=== PATIENT | female | born 1945 | race Caucasian/White ===

== ENCOUNTER 2017-08-04 17:24 | Inpatient (IN) | payer MEDICARE ==
[~2017-08-04] VITALS: Ht 149.9 cm; Wt 83.9 kg
--- NOTE | ~2017-08-04 | EC ---
PATIENT:CORNELIA GANDHI DATE OF SERVICE: 08/04/17 SEX: F MEDICAL RECORD: [id number] DATE OF : [birth year] LOCATION:D. D.211 AGE OF PATIENT: 71 ADMISSION DATE: 08/04/17 REFERRING PHYSICIAN: INTERPRETING PHYSICIAN: DUGLAS COKER MD ECHOCARDIOGRAM REPORT ECHO CHARGES 4 ECHO COMPLETE Date: 08/05 CLINICAL DIAGNOSIS: ACUTE OR ECHOCARDIOGRAPHIC MEASUREMENTS (adult normal given) AC root (d.<3.7cm) 3.7 cm LV Septum d (<1.2 cm> 1.4 cm Valve Excursion 1.9 cm LV Septum (systole) 1.7 cm Left Atria (s.<4.0cm> 4.9 cm LVPW d(<1.2cm) 1.5 cm RV (d.<2.3cm) 3.6 cm LVPW (sytole) 2.1 cm LV diastole(<5.6CM) 4.2 cm MV E-F(>70mm/sec) cm LV systole 2.5 cm LVOT Diameter 1.6 cm MV exc.(>10mm) 1.0 cm Est.ejection fraction (50-75%) % DOPPLER: LVIT cm/sec A 82.0 cm/sec E 94.0 cm/sec LA cm/sec RVSP 41 mmHg LVOT 88 cm/sec AOP1/2T m/s Asc. 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 Coker TAPE# PACS Pericardial Effusion N DATE OF SERVICE: PROCEDURE: Transthoracic echocardiogram. FINDINGS: 1. Left ventricle has moderate concentric left ventricular hypertrophy. Inflow characteristic is consistent with grade II diastolic dysfunction. 2. The overall ejection fraction is 60% to 70%. 3. The left atrium is moderately dilated. 4. The aortic valve is overall normal. ECHOCARDIOGRAM REPORT [id number] CORNELIA GANDHI 5. The mitral valve has mild mitral regurgitation. 6. Tricuspid valve has mild tricuspid regurgitation. 7. The right ventricle is mildly dilated. 8. The right atrium is mildly dilated. CONCLUSION: The patient has evidence of hypertensive heart disease. There is no obvious regional wall motion abnormalities with this evaluation. TRANSINT:[id number] Voice Confirmation ID: [id number] DOCUMENT ID: [id number] DUGLAS COKER MD at 0927 CC: [id number] DICTATION DATE: 08/06/17 1033 PLEAT TAPER: 08/06/17 1059 DIS IN 08/05/17 [place] [id number]
--- NOTE | ~2017-08-04 | HEMODYNAMI ---
PATIENT:CORNELIA GANDHI MEDICAL RECORD: [id number] : [birth year] LOCATION:[facility] D.2115 ADMISSION DATE: 08/04/17 Generatedon:08/05/20179:49 Patient name: CORNELIA GANDHI Patient #: [id number] SSN: DO B: 1945 Date of study: 08/05/2017 Page: Of Hemodynamic Procedure Report Patient Data Patient Demographics Procedure consent was obtained First Name: CORNELIA Gender: Female Last Name: HIRAM : 1945 Patient #: [id number] Age: 71 year(s) Race: Unknown Additional ID: [id number] Contact details [address]: [address] [place] [address] State: [place] City: [place] Zip code: [address] Past Medical History Allergies Allergen Reaction Date Comments Reported Other allergy 08/05/2017 PCN, IV DYE Admission Admission Data Admission Date: 08/04/2017 Admission Time: 22:08 Room #: D2115 Lab Results Lab Result Date: 08/05/2017 Lab Result Time: 0:00 Biochemistry Name Units Result Min Max BUN mg/dl 17 --(---*)-- 7 18 Creatinine mg/dl 0.7 --(*---)-- 0.6 1.3 CBC Name Units Result Min Max Hemoglobin g/dl 12.2 *-(----)-- 13.5 17.5 Procedure Procedure Types Cath Procedure Diagnostic Procedure [facility] w/Coronaries PCI Procedure Coronary Stent Coronary Stent Initial Procedure Description Procedure Date Procedure Date: 08/05/2017 Procedure Start Time: 9:14 Procedure End Time: 9:46 Procedure Staff Name Function Km Gnuter MD Performing Physician Jose Gross RT Monitor Alyx Mc RT Scrub Juan De Leon RN Nurse Procedure Data Cath Procedure Fluoroscopy Diagnostic fluoroscopy Total fluoroscopy Time: time: 10.8 min 10.8 min Diagnostic fluoroscopy Total fluoroscopy dose: dose: 1564 mGy 1564 mGy Contrast Material Contrast Material Type Amount (ml) Isovue 300 93 Entry Location Entry Primary Successful Side Size Upsize Upsize Entry Closure Hernandez ccessful Closure Location (Fr) 1 (Fr) 2 (Fr) Remarks Device Remarks Radial Right 6 Fr Mechanical artery Short Compression Estimated blood loss: 10 ml Diagnostic catheters Device Type Used For End Catheter Placement DIAGNOSTIC [place] 110cm 5 Procedure Fr catheter ([id number]) Procedure Complications No complications Procedure Medications Medication Administration Route Dosage Oxygen etCO2 Nasal cannula 2 l/min Heparin Flush Bag added to field 2 bags (1000units/500ml NS) 0.9% NaCl I.V. 100 ml/hr Radial Cocktail added to field 1 syringe (Verapomil 2mg/Nitro 400mcg/Heparin 1500units) Fentanyl I.V. 50 mcg Versed I.V. 1 mg Radial Cocktail I.A. 1 syringe (Verapomil 2mg/Nitro 400mcg/Heparin 1500units) Fentanyl I.V. 50 mcg Versed I.V. 1 mg Lopressor I.V. 5 mg Angiomax (bolus) I.V. 12.4 ml Angiomax Drip I.V. drip 28.9 ml/hr (250mg/50ml NS) (Renal) Angiomax Drip I.V. drip 28.9 ml/hr (250mg/50ml NS) (Renal) Hemodynamics Rest HGB: 12.2 (g/dl) Heart Rate: 102 (bpm) Pressure Samples Time Site Value (mmHg) Purpose Heart Use Rate(bpm) 9:17 LV 147/22,32 Snapshot 108 9:17 LV 150/17,29 EDP 109 9:18 LV 130/-6,7 EDP 110 9:19 AO 83/28(54) Snapshot 115 9:20 AO 98/75(74) Snapshot 100 Gradients Valve Time Site Site Mean SEP/DFP Peak To Heart Use 1 2 (mmHg) (sec/min) Peak Rate (mmHg) (bpm) Aortic 9:17 LV AO 108 Aortic 9:19 LV AO 109 Snapshots Pre Cath Intra NCS Post Cath Vital Signs Time Heart Resp SPO2 etCO2 NIBP (mmHg) Rhythm Pain Sedation Rate (ipm) (%) (mmHg) Status Level (bpm) 9:06:26 106 17 90 0 155/97(133) NSR 0 (11) 10(A) , No pain 9:11:17 99 17 95 41.1 133/83(116) NSR 0 (11) 10(A) , No pain 9:16:02 101 16 94 42.6 129/87(118) NSR 0 (11) 9(A) , No pain 9:20:45 95 16 97 44.1 121/75(107) NSR 0 (11) 9(A) , No pain 9:25:29 87 16 92 45.5 126/65(88) NSR 0 (11) 9(A) , No pain 9:30:16 86 17 95 43.3 117/55(87) NSR 0 (11) 9(A) , No pain 9:34:59 85 16 95 43.3 132/77(104) NSR 0 (11) 9(A) , No pain 9:39:44 89 17 93 43.3 138/87(112) NSR 0 (11) 9(A) , No pain 9:44:14 90 17 97 43.3 155/95(138) NSR 0 (11) 9(A) , No pain Medications Time Medication Route Dose Verified Delivered Reason Note s Effectiveness by by 9:05:43 Oxygen etCO2 2 l/min Km Juan Per physician Nasal Lyric De Leon RN cannula 9:05:52 Heparin Flush added 2 bags Km Juan used for Bag to Lyric De Leon RN procedure (1000units/500ml field KEENE NS) 9:06:01 0.9% NaCl I.V. 100 Km Juan Per physician ml/hr Lyric De Leon RN, MD 9:06:09 Radial Cocktail added 1 Km Juan used for (Verapomil to syringe Lyric De Leon RN procedure 2mg/Nitro field KEENE 400mcg/Heparin 1500units) 9:12:12 Fentanyl I.V. 50 mcg Km Juan for sedation Lyric De Leon RN, MD 9:12:20 Versed I.V. 1 mg Km Juan for sedation Lyric De Leon RN, MD 9:16:43 Radial Cocktail I.A. 1 Km Km for (Verapomil syringe Lyric Gunter MD vasodilation 2mg/Star KEENE 400mcg/Heparin 1500units) 9:17:06 Fentanyl I.V. 50 mcg Km Juan for sedation Lyric De Leon RN, MD 9:17:10 Versed I.V. 1 mg Km Martinez for sedation Lyric De Leon RN, MD 9:19:29 Lopressor I.V. 5 mg Km Martinez Per physician Lyric De Leon RN, MD 9:26:32 Angiomax (bolus) I.V. 12.4 ml Km Martinez for Lyric De Leon RN anticoagulation 9:27:05 Angiomax Drip I.V. 28.9 Km Martinez for (250mg/50ml NS) drip ml/hr Lyric De Leon RN anticoagulation (Renal) 9:42:55 Angiomax Drip I.V. 28.9 Km Juan for (250mg/50ml NS) drip ml/hr Lyric De Leon RN anticoagulation (Renal) discontinued Procedure Log Time Note 8:30:48 Juan De Leon RN sent for patient. Start room use. 8:43:49 Time tracking: Regular hours (M-F 7:00 - 5:00) 8:43:54 Plan of Care:Hemodynamics will remain stable., Cardiac rhythm will remain stable., Comfort level will be maintained., Respiratory function will remain adequate., Patient/ family verbilizes understanding of procedure., Procedure tolerated without complication., Recovers from procedure without complications.. 8:43:55 Signed procedure consent form obtained from patient. 8:44:06 H&P Date Dictated: 08/04/2017 Within 30 days and on chart.. 8:44:23 Patient allergic to Other allergyPCN, IV DYE 8:45:30 Lab Result : Creatinine 0.7 mg/dl 8:45:30 Lab Result : BUN 17 mg/dl 8:45:30 Lab Result : Hemoglobin 12.2 g/dl 8:52:42 Patient received from Med II to CCL 1 Alert and oriented. Tansferred to table in Supine position. 8:52:46 Warm blankets applied, and mona hugger turned on for patient comfort. 8:52:46 Correct patient and procedure confirmed by team. 8:52:47 ECG and BP/O2 sat monitors applied to patient. 9:05:23 Vital chart was started 9:05:43 Oxygen 2 l/min etCO2 Nasal cannula was administered by Juan De Leon RN; Per physician; 9:05:52 Heparin Flush Bag (1000units/500ml NS) 2 bags added to field was administered by Juan De Leon RN; used for procedure; 9:06:01 0.9% NaCl 100 ml/hr I.V. was administered by Juan De Leon RN; Per physician; 9:06:09 Radial Cocktail (Verapomil 2mg/Nitro 400mcg/Heparin 1500units) 1 syringe added to field was administered by Juan De Leon RN; used for procedure; 9:07:10 Baseline sample Acquired. 9:07:14 Rhythm: sinus tachycardia 9:07:35 Full Disclosure recording started 9:07:39 Pre-procedure instructions explained to patient. 9:07:39 Pre-op teaching completed and patient verbalized understanding. 9:07:41 Family unavailable. 9:07:44 Patient NPO since Midnight. 9:07:51 Is the patient allergic to Iodine/contrast media? Yes. 9:07:53 Was the patient premedicated? Yes 9:08:00 Is patient on blood thinner?Yes 9:08:03 ACC The patient was administered the following blood thiners within the last 24 hours: ACCBrilinta 9:08:08 Patient diabetic? Yes. 9:08:09 If diabetic: On Metformin? Yes 9:08:12 If on Metformin: Last Dose? 08/03/2017 9:08:16 Patient not . Patient is over age 55. 9:08:18 Previous problem with sedation/anesthesia? No ? 9:08:19 Snore? Yes 9:08:20 Sleep apnea? No 9:08:21 Deviated septum? No 9:08:21 Opens mouth fully? Yes 9:08:22 Sticks out tongue? Yes 9:08:30 Airway obstruction? Yes Asthma 9:08:36 Dentures? No ? 9:08:39 Pre procedure: right dorsailis pedis pulse 1+ Palpable, but thready & weak; easily obliterated 9:08:40 Modified Zack's test Ulnar < 7 seconds 9:08:42 Patient pain scale 0/10 ?. 9:08:47 IV patent on arrival in right forearm with 0.9% NaCl at [facility]. 9:08:49 Lab results completed and on chart. 9:08:56 Right Radial & Right Groin area was prepped with chlora-prep and draped in sterile fashion 9:08:58 Alarms reviewed by R. N. 9:08:59 Sharps counted by scrub and verified by R.N. 9:10:57 --------ALL STOP TIME OUT------ 9:10:58 Final Timeout: patient, procedure, and site verified with staff and physician. All members of the team are in agreement. 9:10:59 Right Radial & Right Groin site verified by team. 9:11:02 Physical assessment completed. ASA score P 2 - A patient with mild systemic disease as per Km Gunter MD. 9:11:05 Sedation plan: IV Moderate Sedation Medication:Versed, Fentanyl 9:12:12 Fentanyl 50 mcg I.V. was administered by Juan De Leon RN; for sedation; 9:12:20 Versed 1 mg I.V. was administered by Juan De Leon RN; for sedation; 9:14:40 Procedure started. 9:14:45 Local anesthetic to right radial artery with Lidocaine 2% by Km Gunter MD.INITIAL ACCESS ONLY 9:14:56 Use device set Radial Dx or PCI 9:14:59 Tegaderm 4 x 4 ([id number]) opened to sterile field. 9:15:05 ACIST Syringe (89186) opened to sterile field. 9:15:05 Medline Cath Pack ([id number]) opened to sterile field. 9:15:06 Bag Decanter (2002S) opened to sterile field. 9:15:09 ACIST Hand Control (52265) opened to sterile field. 9:15:09 ACIST Manifold (54133) opened to sterile field. 9:15:10 DIAGNOSTIC WIRE .035 260cm J wire (120959) opened to sterile field. 9:15:11 MBrace Wrist Support ([id number]) opened to sterile field. 9:15:13 SHEATH 6Fr Prelude Radial ([id number]) opened to sterile field. 9:15:20 IV Extension Set opened to sterile field. 9:16:40 A 6 Fr Short sheath was inserted into the Right Radial artery 9:16:43 Radial Cocktail (Verapomil 2mg/Nitro 400mcg/Heparin 1500units) 1 syringe I.A. was administered by Km Gunter MD; for vasodilation; 9:17:06 Fentanyl 50 mcg I.V. was administered by Juan De Leon RN; for sedation; 9:17:10 Versed 1 mg I.V. was administered by Juan De Leon RN; for sedation; 9:17:19 A DIAGNOSTIC [place] 110cm 5 Fr catheter (115474) was advanced over the wire and used for Procedure. 9:18:05 Zero performed for pressure channel P1 9:18:07 Zero performed for pressure channel P1 9:18:30 LV angiography performed. 9:18:32 LV gram done using SYKES 9:18:38 EF : 60 % 9:18:40 LV hemodynamics recorded. 9:18:43 Injector settings: Ml/sec: 12, Volume: 8, 9:19:16 RCA angiography performed. 9:19:29 Lopressor 5 mg I.V. was administered by Juan De Leon RN; Per physician; 9:20:18 LCA angiography performed. 9:20:41 Catheter exchanged over wire. 9:23:59 Use device set NORRED PCI 9:24:08 INFLATOR Merit BasixCompak (FI5233) opened to sterile field. 9:24:10 COPILOT Valve Control (2782335) opened to sterile field. 9:24:12 BMW 190cm Kil[place] 2 J wire ([id number]) opened to sterile field. 9:25:01 GUIDE 6FR EBU 3.5 SH catheter ([id number]) opened to sterile field. 9:25:13 6 Fr EBU 3.5 SH guide catheter was inserted over the wire 9:26:32 Angiomax (bolus) 12.4 ml I.V. was administered by Juan De Leon RN; for anticoagulation; 9:27:05 Angiomax Drip (250mg/50ml NS) (Renal) 28.9 ml/hr I.V. drip was administered by Juan De Leon RN; for anticoagulation; 9:30:51 BMW wire advanced. 9:31:56 Wire advanced across lesion. 9:35:04 Inflate balloon Inflation number: 1 A EUPHORA 2.0 x 20 Balloon ([id number]) was prepped and advanced across the 1st Diag, then inflated to 10 BRAXTON for 0:10 (min:sec). 9:35:19 Multiple inflations made at 10 Atms. 9:36:28 Balloon removed over the wire. 9:38:56 Place stent Inflation Number: 2 A LEROY RX 2.0 x 15 stent ([id number]) was prepped and advanced across the 1st Diag. The stent was deployed at 14 BRAXTON for 0:10 (min:sec). 9:39:22 Stent catheter was removed intact over wire. 9:40:47 TR BAND Large ([id number]) opened to sterile field. 9:40:56 Wire removed. 9:40:57 Guide catheter removed. 9:41:10 Sheath removed intact; hemostasis achieved with Mechanical Compression to the Right Radial artery. 9:41:13 Procedure ended.(Physican Out) 9:42:55 Angiomax Drip (250mg/50ml NS) (Renal) 28.9 ml/hr I.V. drip was administered by Juan De Leon RN; for anticoagulation discontinued; 9:44:48 Fluoroscopy time 10.80 minutes. 9:44:53 Fluoroscopy dose: 1564 mGy 9:44:53 Flurop Dose total: 1564 9:45:15 Contrast amount:Isovue 300 93ml. 9:45:45 Sharps counted by scrub and verified by R.N. 9:45:48 TR band inflated with 10cc of air. 9:45:51 Insertion/operative site no bleeding no hematoma. 9:45:54 Post Procedure Pulses reassessed and unchanged 9:45:57 Post-procedure physical assessment completed. ASA score P 2 - A patient with mild systemic disease as per Km Gunter MD. 9:45:59 Post procedure rhythm: unchanged. 9:46:03 Estimated blood loss: 10 ml 9:46:04 Post procedure instruction explained to patient.Patient verbalizes understanding. 9:46:05 Patient needs reinforcement of post procedure teaching. 9:46:12 Procedure type changed to Cath procedure, Diagnostic procedure, LHC, LHC w/Coronaries, PCI procedure, Coronary Stent, Coronary Stent Initial 9:46:14 Procedure and supply charges have been captured, reviewed, submitted and are correct. 9:46:17 Procedure Complication : No complications 9:46:19 Vital chart was stopped 9:46:20 See physician's report for complete and final results. 9:46:24 Report given to PCU. 9:46:28 Patient transfered to PCU with Bed. 9:46:30 Procedure ended. 9:46:30 Full Disclosure recording stopped 9:48:32 End room use (Document Last) Intervention Summary Intervention Notes Time ActionType Lesion and Equipment Used Action# Pressure Duration Attributes 9:35:04 Inflate 1st Diag EUPHORA 2.0 x 1 10 00:10 balloon 20 Balloon ([id number]) 9:38:56 Place stent 1st Diag LEROY RX 2.0 x 2 14 00:10 15 stent ([id number]) Device Usage Item Name Manufacture Quantity Catalog Number Hospital Part Current Minimal Lot# / Charge Number Stock Stock Serial# Code Tegaderm 4 x 4 3M 1 [id number] [id number] [id number] 5 (1626W) ACIST Syringe Acist 1 44814 063306 300015 014404 20 (08477) Medical Systems Inc Medline Cath Cardinal 1 [id number] 253273 91060 921516 5 Pack Health ([id number]) Bag Decanter Microtek 1 2001S 988946 56786 719202 5 (2001S) Medical Inc. ACIST Hand Acist 1 11107 721904 166527 807171 5 Control (89802) [employer] Inc ACIST Manifold Acist 1 14458 953769 030036 547457 5 (39647) [employer] Inc DIAGNOSTIC WIRE St [place] 1 000726 565074 762570 283353 30 .035 260cm J wire (939587) MBrace Wrist Advanced 1 140-0250-00 043926 48055 640612 5 Support Vascular ([id number]) Dynamics SHEATH 6Fr Merit 1 [id number] 472497 432689 229362 5 Prelude Radial Medical ([id number]) IV Extension Hospira 1 47713-08 417952 46285 341217 5 Set DIAGNOSTIC Terumo 1 14-2531 424447 515453 820412 5 [place] 110cm 5 Fr catheter (478060) INFLATOR Merit Merit 1 EA0859 191033 983837 288814 15 BasixSpokeableazYek Mobile Medical ([id number]) COPILOT Valve Mckeon 1 2599333 041355 245337 097671 5 Control Vascular (2471494) BMW 190cm Mckeon 1 [id number] 279985 25437 785659 5 [place] 2 J Vascular wire ([id number]) GUIDE 6FR EBU Medtronic 1 [id number] 422139 32141 245950 1 3.5 SH catheter ([id number]) EUPHORA 2.0 x Medtronic 1 [id number] 234532 978831 062267 5 [id number] 20 Balloon ([id number]) LEROY RX 2.0 x Medtronic 1 [id number] 736676 6859504 353353 5 [id number] 15 stent ([id number]) TR BAND Large Terumo 1 [id number] 039485 272165 802442 40 ([id number]) Signature Audit [place] Stage Time Signature Unsigned Intra-Procedure 08/05/2017 Jose Gross 9:49:01 AM RT(R) Signatures Monitor : Jose Gross RT Signature : Date : Time : [place] [id number] [facility] [address]
[2017-08-04] MEDS ORDERED: BUSPAR 15 MG TA15 MG PO (17:34)
[2017-08-04] MEDS ORDERED: LANTUS INSULIN10 ML SQ (17:53)
[2017-08-04] MEDS ORDERED: EFFEXOR75 MG PO (17:54)
[2017-08-04] MEDS ORDERED: GLUCOTROL 5 MG T5 MG PO (17:55)
[2017-08-04] MEDS ORDERED: CARDIZEM CD180 MG PO (17:55)
[2017-08-04] MEDS ORDERED: OMEPRAZOLE20 M1 PO (17:56)
[2017-08-04] MEDS ORDERED: DIOVAN80 MG PO (17:56)
[2017-08-04] MEDS ORDERED: MOBIC7.5 MG PO (17:56)
[2017-08-04] MEDS ORDERED: TOPROL XL50 MG PO (17:57)
[2017-08-04] MEDS ORDERED: NEURONTIN 400400 MG PO (17:57)
[2017-08-04] MEDS ORDERED: PROAIR HFA8.5 GM INH (17:58)
[2017-08-04] MEDS ORDERED: GLUCOPHAGE500 MG PO (17:58)
[2017-08-04] MEDS ORDERED: LIPITOR20 MG PO (17:59)
[2017-08-04 20:36] LABS: BASOPHILS 0.6 % (0-2); HEMATOCRIT 40.7 % (36.0-48.0); HEMOGLOBIN 13.2 g/dL (12-16); IMMATURE GRANULOCYTES 0.3 % (0-5); LYMPHOCYTES 32.7 % (15-50); MCH 25.7 pg (26.0-34.0); MCHC 32.4 g/dL (31.0-37.0); MCV 79.3 fL (80.0-100.0); MEAN PLATELET VOLUME 9.7 fL (7.4-10.4); MONOCYTES 7.9 % (2-11); NEUTROPHILS 46.5 % (40-80); PLATELET COUNT 316 10x3/uL (130-400); RBC 5.13 10x6/uL (4.00-5.40); RDW 14.9 % (11.5-14.5); WBC 14.7 10x3/uL (4.8-10.8)
[2017-08-04 21:01] LABS: INR 1.01 (0.85-1.17); PROTIME 12.9 SECONDS (11.6-15.0)
[2017-08-04 21:02] LABS: D-DIMER-QUANTITATIVE 0.68 ug/mLFEU (0.20-0.54)
[2017-08-04 21:03] LABS: ALBUMIN 3.4 g/dL (3.4-5.0); ALKALINE PHOSPHATASE 85 U/L (46-116); ALT (SGPT) 36 U/L (10-68); CALC OSMOLALITY 285 mosm/kg (275-300); CALCIUM 9.5 mg/dL (8.5-10.1); CARBON DIOXIDE 28.5 mmol/L (21.0-32.0); CHLORIDE - SERUM 103 mmol/L (98-107); CREATININE - SERUM 0.6 mg/dL (0.6-1.3); GLUCOSE 196 mg/dL (74-106); POTASSIUM - SERUM 3.6 mmol/L (3.5-5.1); PROTEIN - SERUM 7.9 g/dL (6.4-8.2); SODIUM 141 mmol/L (136-145); UREA NITROGEN 13 mg/dL (7-18); eGFR NON AFRICAN AMERICAN > 90 mL/min (90-120)
[2017-08-04 21:20] LABS: CKMB 73.5 U/L (0.0-3.6); CREATINE KINASE 620 UL (21-215); MAGNESIUM - SERUM 1.8 mg/dL (1.8-2.4)
[2017-08-04 21:22] LABS: TROPONIN-I 7.952 ng/mL (0.000-0.060)
[2017-08-04 22:25] LABS: CALC OSMOLALITY 283 mosm/kg (275-300); CALCIUM 9.8 mg/dL (8.5-10.1); CARBON DIOXIDE 29.2 mmol/L (21.0-32.0); CHLORIDE - SERUM 103 mmol/L (98-107); CREATININE - SERUM 0.7 mg/dL (0.6-1.3); GLUCOSE 194 mg/dL (74-106); POTASSIUM - SERUM 3.9 mmol/L (3.5-5.1); SODIUM 140 mmol/L (136-145); UREA NITROGEN 13 mg/dL (7-18); eGFR NON AFRICAN AMERICAN 88 mL/min (90-120)
[2017-08-04 22:26] VITALS: BP 153/53
[2017-08-04 23:31] LABS: CREATINE KINASE 661 UL (21-215)
[2017-08-04 23:38] LABS: TROPONIN-I 9.488 ng/mL (0.000-0.060)
[2017-08-05 00:57] VITALS: BP 115/63; BMI 37.4
[2017-08-05] MEDS ORDERED: BAYER CHEWABLE81 MG PO (02:08)
[2017-08-05] MEDS ORDERED: ADVIL200 MG PO (02:08)
[2017-08-05 06:16] LABS: BASOPHILS 0.8 % (0-2); EOSINOPHILS 3.1 % (0-7); HEMATOCRIT 38.9 % (36.0-48.0); HEMOGLOBIN 12.2 g/dL (12-16); IMMATURE GRANULOCYTES 0.2 % (0-5); MCH 25.5 pg (26.0-34.0); MCHC 31.4 g/dL (31.0-37.0); MCV 81.2 fL (80.0-100.0); MEAN PLATELET VOLUME 9.1 fL (7.4-10.4); MONOCYTES 5.9 % (2-11); PLATELET COUNT 276 10x3/uL (130-400); RBC 4.79 10x6/uL (4.00-5.40); RDW 15.1 % (11.5-14.5)
[2017-08-05 06:34] LABS: ALBUMIN 3.2 g/dL (3.4-5.0); ALKALINE PHOSPHATASE 79 U/L (46-116); ALT (SGPT) 40 U/L (10-68); CALC OSMOLALITY 294 mosm/kg (275-300); CALCIUM 9.3 mg/dL (8.5-10.1); CARBON DIOXIDE 32.2 mmol/L (21.0-32.0); CHLORIDE - SERUM 104 mmol/L (98-107); CREATININE - SERUM 0.7 mg/dL (0.6-1.3); GLUCOSE 248 mg/dL (74-106); POTASSIUM - SERUM 4.3 mmol/L (3.5-5.1); PROTEIN - SERUM 7.5 g/dL (6.4-8.2); SODIUM 143 mmol/L (136-145); UREA NITROGEN 17 mg/dL (7-18); eGFR NON AFRICAN AMERICAN 88 mL/min (90-120)
[2017-08-05 06:55] LABS: CKMB 77.1 U/L (0.0-3.6); CREATINE KINASE 631 UL (21-215)
[2017-08-05 06:57] LABS: TROPONIN-I 10.152 ng/mL (0.000-0.060)
[2017-08-05 07:49] LABS: APPEARANCE CLEAR (CLEAR); BILIRUBIN NEGATIVE (NEGATIVE); COLOR YELLOW (YELLOW); GLUCOSE 100 mg/dL (NEGATIVE); KETONE NEGATIVE (NEGATIVE); NITRITE NEGATIVE (NEGATIVE); PH 5.5 (5.0-6.0); PROTEIN NEGATIVE (NEGATIVE); SPECIFIC GRAVITY 1.015 (1.005-1.020); UROBILINOGEN NORMAL (NORMAL)
[2017-08-05 08:02] VITALS: BP 145/84
[2017-08-05 09:47] VITALS: BMI 37.3
[2017-08-05 11:25] VITALS: BP 133/71
[2017-08-05 11:43] VITALS: Ht 149.9 cm; Wt 83.9 kg
[2017-08-05 12:25] LABS: CKMB 68.7 U/L (0.0-3.6); CREATINE KINASE 632 UL (21-215); TROPONIN-I 24.641 ng/mL (0.000-0.060)
[2017-08-05] MEDS ORDERED: BRILINTA90 MG PO ×2 (14:52→14:53)
[2017-08-05] MEDS ORDERED: LIPITOR20 MG PO (14:53)
[2017-08-05] MEDS ORDERED: METOPROLOL TART50 MG PO (14:53)
[2017-08-05] MEDS ORDERED: NITROQUICK0.4 MG SL (14:54)
[2017-08-05 15:39] VITALS: BP 134/68
== END 2017-08-05 19:34 | disposition home or self-care (01) | DRG 247 ==
LOC: D.ER 17:24 → D.M2 22:08
PROVIDERS: Family Medicine; Internal Medicine Cardiovascular Disease; Internal Medicine Nephrology
PROC: B2111ZZ Fluoroscopy of Multiple Coronary Arteries using Low Osmolar Contrast (ICD-10-PCS; 2017-08-05)
PROC: B2151ZZ Fluoroscopy of Left Heart using Low Osmolar Contrast (ICD-10-PCS; 2017-08-05)
PROC: 027034Z Dilation of Coronary Artery, One Artery with Drug-eluting Intraluminal Device, Percutaneous Approach (ICD-10-PCS; principal; 2017-08-05 09:15)
PROC: 4A023N7 Measurement of Cardiac Sampling and Pressure, Left Heart, Percutaneous Approach (ICD-10-PCS; 2017-08-05 09:15)
DX: I21.4 Non-ST elevation (NSTEMI) myocardial infarction (principal); I25.10 Atherosclerotic heart disease of native coronary artery without angina pectoris; I10 Essential (primary) hypertension; E78.5 Hyperlipidemia, unspecified; E11.9 Type 2 diabetes mellitus without complications; K21.9 Gastro-esophageal reflux disease without esophagitis; J45.909 Unspecified asthma, uncomplicated; E78.00 Pure hypercholesterolemia, unspecified